=== PATIENT | male | born 2000 | race Asian ===

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

== ENCOUNTER 2023-02-08 13:46 | Emergency (ER) | payer OTHER, SELFPAY ==
[2023-02-08 13:47] VITALS: BP 117/83; PULSE 109; RESP 16; TEMP 36.3; O2SAT 98; BMI 20.6
--- NOTE | 2023-02-08 14:00 | EDS_ITS ---
HPI <LORAINE Johnson - Last Filed: 02/08/23 16:47> History of Present Illness Chief Complaint: Ear Problem Narrative Narrative: Patient presenting today with left-sided ear fullness with occasional sharp pain that he has had for the past few days. He states that he has a history of cerumen impaction bilaterally. He denies any fever, chills, recent illness, nasal congestion, sore throat, and cough. He denies any trauma to the ear/foreign body to the ear. PFSH <LORAINE Johnson - Last Filed: 02/08/23 16:47> [facility] Medical History (Updated 02/08/23 @ 15:50 by LORAINE Johnson) No acute medical problems Home Medications NK 02/08/23 [History Last Taken Unknown] Allergy/AdvReac Type Severity Reaction Status Date / Time No Known Allergies Allergy Verified 02/08/23 14:04 Social History Smoking Status: Never smoker ROS <LORAINE Johnson - Last Filed: 02/08/23 16:47> ROS ED Constitutional Constitutional ED: Denies chills or fever(s) ENT ENT ED: Reports ear pain left; Denies rhinorrhea or sore throat Cardiovascular Cardiovascular: Denies chest pain Respiratory/Chest Respiratory/Chest: Denies cough or dyspnea Gastrointestinal Gastrointestinal: Denies abdominal pain, nausea or vomiting Musculoskeletal Musculoskeletal: Denies arthralgias or myalgias Integumentary Denies abscess, Abrasions or rash Neurologic Neurologic: Denies headache(s) Psychiatric Psychiatric: Denies anxiety, depression, suicidal ideation or suicidal thoughts EXAM <LORAINE Johnson - Last Filed: 02/08/23 16:47> Physical Exam Const Vital Signs: 02/08/23 13:47 02/08/23 15:52 Temperature 97.4 F L Temperature Source Temporal Pulse Rate 109 H Respiratory Rate 16 16 Blood Pressure 117/83 H Blood Pressure Mean 94 Pulse Ox 98 Oxygen Delivery Method Room Air Positive well nourished, well developed and no apparent distress General Appearance ED: well developed HEENT Reports normocephalic, head/scalp atraumatic and moist mucous membranes HEENT Narrative: Bilateral cerumen impaction. Mouth ED: Yes moist mucous membranes normal Eyes PERRL and EOMs intact bilaterally Neck full ROM and supple Chest Wall inspection of chest normal Resp normal respiratory effort and clear to auscultation bilaterally Cardio regular rate and regular rhythm GI soft to palpation, non-tender, non-distended and no masses Back/Spine normal ROM and normal to inspection Extremity normal to inspection and full ROM Neuro oriented x3, CN's II-XII intact bilaterally, moves all extremities, no focal motor deficits and no sensory deficits noted Sensorium / Orientation: awake and alert Psych mental status grossly normal and thought process normal Skin no rashes or lesions noted and no wounds <Jorge Murphy MD - Last Filed: 02/08/23 16:53> Physical Exam Const Vital Signs: 02/08/23 13:47 02/08/23 15:52 Temperature 97.4 F L Temperature Source Temporal Pulse Rate 109 H Respiratory Rate 16 16 Blood Pressure 117/83 H Blood Pressure Mean 94 Pulse Ox 98 Oxygen Delivery Method Room Air [facility] <LORAINE Johnson - Last Filed: 02/08/23 16:47> [facility] Narrative Medical decision making narrative: Patient presenting today with left-sided ear fullness and intermittent sharp pain in his L ear that he has had for the past few days. Patient is well- appearing and in no acute distress. He is afebrile and does not have any symptoms concerning for a URI. Patient does have L sided cerumen impaction and it will be flushed. After patient's ear was flushed, I reevaluated patient. He does not have any bulging of his TM or signs of otitis media. There are no signs of otitis externa. He has been given an ENT referral. He will be discharged home in stable condition and is comfortable with plan. <Jorge Murphy MD - Last Filed: 02/08/23 16:53> [facility] Treatment and Re-Evaluation :: I have personally performed a face to face assessment of the patient and have reviewed the DEEDEE Note. I performed a substantive portion of the visit including all aspects of the following. My hein findings include: History is left ear pain with hearing muffled Exam is afebrile. Vital signs noted. Positive cerumen impaction left ear without mastoid erythema or tenderness. Medical Decision Making: Debrox. Irrigation. Cerumen impaction resolved. Discharge. Other additions or changes: [None] Discharge Plan Triage Chief Complaint: Ear Problem ED Midlevel Provider: America Duran ED Provider: Jorge Murphy Dx/Rx/DC Orders Clinical Impression: Bilateral impacted cerumen Instructions: Impacted Earwax Prescriptions: No Action NK Primary Care Provider: Ashwin Low Referrals: Ashwin Low MD [Primary Care Provider] - As Needed Nabil Bray MD [Med Staff - Active Staff] - As Needed Activity Restrictions/Additional Instructions: Please follow-up with ENT in the future if you develop ear pain. Disposition Disposition: Home, Self Care Discharge Date/Time: 02/08/23 15:55
[2023-02-08] MEDS: Carbamide Peroxide 15 ML Bottle 5 DRP OTIC (14:18)
[2023-02-08 15:52] VITALS: RESP 16
== END 2023-02-08 15:55 | disposition home or self-care (01) ==
PROVIDERS: Emergency Provider Emergency Medicine; PCP Pediatrics; Visit Provider Emergency Medicine
DX: H61.23 Impacted cerumen, bilateral (principal)
CPT/HCPCS: 69209; 99283